=== PATIENT | female | born 1955 | race Caucasian/White ===

== ENCOUNTER 2016-12-04 05:53 | Day surgery (SDC) | payer OTHER ==
[~2016-12-04] VITALS: Ht 162.6 cm; Wt 63.3 kg
[2016-12-04] VITALS (10 sets, daily range): BP systolic 127–144; BP diastolic 70–82; PULSE 72–86; RESP 10–16; O2SAT 92–100
[~2016-12-04 05:53] MED LIST: ACYC200C PO; CALC-72 PO; LORA0.5T PO; LORA10CA PO; MAGN500T PO; NIFE30TA79 PO; PILO5TAB2 PO; TRAM50TA2 PO
[2016-12-04] MEDS ORDERED: fentaNYL-PF 50 mCg/mL 2 mL Inj ONE (05:54)
[2016-12-04] MEDS ORDERED: Propofol 10,000 mCg/mL 20 mL Inj ONE (05:54)
[2016-12-04] MEDS ORDERED: Ondansetron 2 mg/mL 2 mL Inj ONE (05:54)
[2016-12-04] MEDS ORDERED: Dexamethasone 4 mg/mL Inj ONE (05:54)
[2016-12-04] MEDS ORDERED: CeFAZolin 2 Gm/50 mL D5W IV Premix IV ONE (06:00)
[2016-12-04] MEDS: Lactated Ringer's 1,000 ML IV SCH ×2 (06:14→07:11)
[2016-12-04] MEDS ORDERED: Lactated Ringer's 1,000 ML IV SCH (07:25)
[2016-12-04] MEDS ORDERED: Ondansetron 2 mg/mL 2 mL Inj IVPUSH PRN (07:25)
[2016-12-04] MEDS ORDERED: Lactated Ringer's 500 ML IV PRN (07:25)
[2016-12-04] MEDS ORDERED: MetoCLOpramide 5 mg/mL 2 mL Inj IVPUSH PRN (07:25)
[2016-12-04] MEDS ORDERED: Phenylephrine 10,000 mCg/mL Inj IVPUSH PRN (07:25)
[2016-12-04] MEDS ORDERED: EPHEDrine Sulfate 50 mg/mL Inj IVPUSH PRN (07:25)
[2016-12-04] MEDS ORDERED: HYDROmorphone 1 mg/mL Inj IVPUSH PRN (07:25)
[2016-12-04] MEDS ORDERED: Dexamethasone 4 mg/mL Inj IVPUSH PRN (07:25)
--- NOTE | 2016-12-04 07:25 | PCM.HPANE ---
Patient Data Surgeon Admitting Provider: Attending Provider:Pablo Roe DO Primary Care Physician:Chana Snell Other Provider:Guevara Almaraz Anesthesia Reason for Visit Right Finger Retained Hardware Ht/WT & BMI Height (Feet): 5 Height (Inches): 4 Weight (Kilograms): 63.3 Body Mass Index 23.00 Allergies Coded Allergies: Sulfa (Sulfonamide Antibiotics) (Verified Allergy, Unknown, 11/28/16) Past Anesthesia History Anesthesia History: Denies:: Anesthesia Reactions Diabetes History Hx Diabetes?: No Medications Hypertension Medication: Yes Home Meds Incl Beta Patrick: No Reported Medications Tramadol 50 Mg [id number] Mg PO HS PRN For Pain Ref 0 11/28/16 Pilocarpine 5 Mg Tablet5 Mg PO TID 11/28/16 Nifedipine ER 30 Mg Tab.er.2430 Mg PO DAILY Ref 0 11/28/16 Magnesium Oxide 500 Mg Ytcdvy205-9,000 Mg PO HS 11/28/16 Lorazepam 0.5 Mg Tablet0.5 Mg PO HS PRN For Insomnia Ref 0 11/28/16 Loratadine (Claritin)10 Mg Btgdzxa19 Mg PO DAILY Ref 0 11/28/16 Calcium Carbonate/Vitamin D3 (Calcium 500 + Vit D 200 Tablet)1 Each Tablet1 Each PO DAILY 11/28/16 Acyclovir 200 Mg [id number] Mg PO Q8H PRN outbreak Ref 0 for 5 day course 11/28/16 Acyclovir 200 Mg Fvnzxrd121 Mg PO DAILY Ref 0 11/28/16 History History of ENT Problems?: Yes Hx of Heart Problems?: Yes Cardiovascular History: Positive for:: Hypertension Other Cardiac History: Raynauds Hx of Respiratory Problem?: Yes Respiratory History: Positive for:: Asthma Use of Inhalers / NEBS Denies:: Oxygen Administration Use of C-PAP Machine Hx Neurologic Problems?: No Hx of GI Problems?: No Hx of Problems?: No Female Hx: Denies:: Currently (hysterectomy) Skin History: Denies:: History Skin Disorders? Pressure Ulcers Hx Musculoskeletal Problems?: Yes Musculoskeletal History: Positive for:: Fibromyalgia Musculoskeletal Trauma (retained hardware right small finger (3- 1.5mm screws) ) Denies:: Joint Replacement Hx of Psycho/Social Problems?: Yes Psycho Social History: Positive for:: Hx Depression Hx Surgeries?: Yes (ORIF right finger, hysterectomy) Hx Any Other Health Problems?: Yes Other History: Positive for:: Endocrine Disease (SICCA syndrome) Denies:: Cancer Thyroid Disease Hx Diabetes: No Stop/Bang S-Snoring: Do You Snore Loudly: No T-Tired: feel tired, fatigued: Yes O-Obsered: Observed not breath: No P-Blood Pressure: treated: No B- Body Mass Index > 35 kg/m2: Yes A- Age over 50: Yes N- Neck Large Circumference: No G- Gender Male: No INDIO Total Score: 3 Risk Assessment Category Category 1A: Patient has history of documented sleep apnea, and HAS NOT received any narcotic, sedative or anesthesia administration during this stay. Category 1B: Patient has history of documented sleep apnea, and HAS received any narcotic , sedative or anesthesia administration during this stay Category 2: Patient has SUSPECTED Obstructive Sleep Apnea, and HAS received any narcotic , sedative or anesthesia administration during this stay. Category 3: Patient has SUSPECTED Obstructive Sleep Apnea and HAS NOT received narcotic, sedative or anesthesia administration during this stay. Category 4: Outpatient in Procedural Areas with known sleep apnea or who screen positive for High Risk via the STOP/BANG questionnaire. Exam Exam Vital Signs Vital Signs Date Time Temp Pulse Resp B/P Pulse Ox O2 Delivery O2 Flow Rate FiO2 12/04/16 06:17 36.1 86 16 144/79 96 Room Air General Appearance: Alert, Oriented X3, Cooperative, No Acute Distress HEENT/AIRWAY: MP 2 Lungs: Clear to Auscultation Heart: Exam Unremarkable Meds/Labs/Diagnostics Admission Meds Current Medications Lactated Ringer's (Lr) 1,000 ml @ 120 mls/hr Q8H20M IV Last administered on t 07:11; Start 12/04/16 at 05:00; Stop 12/04/16 at 13:19 Plan Impression Patient chart reviewed, patient interviewed and anesthestic plan with risks, benefits, and alternatives discussed, and informed consent obtained. NPO Status: 12/04/16 black coffee at 0300 ASA Physical Status: ASA2 Mod Systemic Disease Anesthetic Plan: GA Bene/Risks/Altern/Consents: Yes HP Complete Prior to Induction: Yes Albert Hurt MD Dec 04, 2016 07:25
[2016-12-04] MEDS ORDERED: Lidocaine 1%-Epi 1:100,000 20 mL Inj INJ ONE (08:08)
[2016-12-04] MEDS: fentaNYL-PF 50 mCg/mL 2 mL Inj IVPUSH PRN ×2 (08:22→08:33)
[2016-12-04] MEDS ORDERED: HYDROcodone-APAP 5-325 mg Tablet PO PRN (08:30)
[2016-12-04] MEDS ORDERED: HYDROmorphone 0.5 mg/0.5 mL iSecure Syringe ONE (08:41)
--- NOTE | 2016-12-04 08:49 | PCM.ANEP2 ---
Post Anesthesia Evaluation ASA/CMS Post Anesthesia VS in Patient's Normal Range?: Yes Resp Stable; Airway Patent?: Yes CV Function & Hydration Stable: Yes Mental Status Recovered?: Yes Pain control Satisfactory?: Yes N/V Control Satisfactory?: Yes Albert Hurt MD Dec 04, 2016 08:49
--- NOTE | 2016-12-04 08:49 | PCM.ANEP1 ---
Post Anesthesia Phase 1 PACU Phase 1 Assessment Vital Signs Vital Signs Date Time Temp Pulse Resp B/P Pulse Ox O2 Delivery O2 Flow Rate FiO2 12/04/16 08:45 80 12 137/75 93 Room Air 12/04/16 08:30 36.9 80 11 128/72 94 Room Air 12/04/16 08:25 81 16 127/70 97 Room Air 12/04/16 08:20 82 11 133/79 97 Room Air 12/04/16 08:16 36.2 128/71 12/04/16 06:17 36.1 86 16 144/79 96 Room Air Anesthetic Administered: GA Level of Alertness: Awake, talking TRIVEDI's with Equal Strength: Yes Pain: Yes Pain Scale Score: 6 Nausea or Vomiting: No Oxygen Delivery: Room Air Lungs: Clear to Auscultation Dermatome Level: Full Sensation Albert Hurt MD Dec 04, 2016 08:49
[2016-12-04] MEDS ORDERED: HYDROcodone-APAP 5-325 mg Tablet PO ONE (09:03)
--- NOTE | 2016-12-04 23:02 | OP ---
[address] [address] OPERATIVE REPORT PATIENT: TAMMIE LANDON : 1955 MR#: [id number] ADMIT: 12/04/2016 JOB ID: [id number] DATE OF SURGERY: 12/04/2016 PREOPERATIVE DIAGNOSIS(ES): Right small finger painful orthopedic hardware within the proximal phalanx. POSTOPERATIVE DIAGNOSIS(ES): Right small finger painful orthopedic hardware within the proximal phalanx. PROCEDURE: Removal of right small finger deep hardware from the proximal phalanx consisting of three screws. SURGEON: Pablo Roe D.O. ANESTHESIA: General. HISTORY: The patient is a pleasant 61-year-old female with a longstanding history of right small finger pain. She had an open reduction, internal fixation right small finger proximal phalanx shaft fracture done many years ago that healed uneventfully. Over the last few years, she started to have more pain and discomfort overlying the heads of the screws. The patient presented to me to discuss having the hardware removed. I explained the risks, benefits, alternatives and indications. She understood the risks include, but are not limited to, neurovascular injury, tendon injury, infection, stiffness, persistent pain; all of which may require further intervention. The patient had all questions answered and consent was signed and placed on the chart. PROCEDURE IN DETAIL: Patient was brought to the operative suite and placed supine on the operating room table. Surgical time-out was performed. Everyone in the room was in agreement. After appropriate anesthesia was obtained, a right upper arm tourniquet was applied and the right upper extremity was prepped and draped in sterile fashion. Right upper extremity was then exsanguinated and tourniquet inflated to 250 mmHg. Patient's right small finger proximal phalanx was approached through the previous incision to the dorsal ulnar aspect of the small finger proximal phalanx. This was extended in a curvilinear fashion distally. Dissection was carried down to the extensor tendon, and the extensor tendon as well as the lateral band was elevated in a radial direction exposing the three screws. The screws were then freed of ant surrounding tissue and removed manually without any complication. Copious irrigation was then performed, followed by direct closure of the skin with 5-0 nylon in simple interrupted fashion. Patient was then placed in a bulky soft dressing. ESTIMATED BLOOD LOSS: Less than 1 cc. COMPLICATIONS: None. DISPOSITION: The patient tolerated the procedure well. Anesthesia was reversed and the patient was transferred back to recovery. SPECIMENS: Three 1.5 mm Synthes cortical screws that were disposed of. POSTOPERATIVE PLAN: The patient will follow up in the office in two weeks. I will remove the patient's sutures at that time and have her start working on range of motion and scar mobilization. DANA
== END 2016-12-04 23:59 | disposition home or self-care (01) ==
LOC: SAS 05:53
PROVIDERS: ATTEND Orthopaedic Surgery
DX: T84.84XS Pain due to internal orthopedic prosthetic devices, implants and grafts, sequela (principal); I10 Essential (primary) hypertension; M85.80 Other specified disorders of bone density and structure, unspecified site; M35.00 Sjogren syndrome, unspecified; F17.210 Nicotine dependence, cigarettes, uncomplicated
CPT/HCPCS: 20680; J0690; J1100; J1170; J2405; J7120

== ENCOUNTER 2016-12-11 19:18 | Emergency (ER) | payer OTHER ==
[~2016-12-11] VITALS: Ht 162.6 cm; Wt 63.0 kg
[2016-12-11 20:04] VITALS: BP 153/88; PULSE 89; RESP 22; O2SAT 98
[2016-12-11 20:47] LABS: BASOPHILS % (AUTO) 0.3 % (0-3); EOSINOPHILS % (AUTO) 1.4 % (0-5); MONOCYTES % (AUTO) 9.4 % (4-12); Mean Corpuscular Hemoglobin 34.7 pg (27.0-35.0); Mean Corpuscular Volume 98.8 fL (81-100); NEUTROPHILS % (AUTO) 77.4 % (40-74); Platelet Count 262 bil/L (150-400)
--- NOTE | 2016-12-11 21:23 | ED.REPORT ---
HPI-Allergic Reaction Date of Service Dec 11, 2016 ED Provider: Rome Teresa MD Patient is a 61 year old female with a history fo Sjgren's Syndrome, fibromyalgia, hypertension, and recent right 5th finger surgery for removal of hardware on 12/04/2016 who presents to the ED with abdominal pain and increased gassiness that began yesterday morning. She reports diffuse cramping pain and states that it hurts to sit or move. Patient describes has pain as "going into colitis" and that she has an episode like this once per year. Her pain is worse when eating or drinking. Patient denies nausea and vomiting, but admits to looser than normal stools for the past 2 days. Patient is on Cephalexin post-op and is concerned that this is what is causing her symptoms. She has been taking this medication for a week stopped taking this antibiotic yesterday. Patient started taking probiotics this morning for her symptoms. She is allergic to sulfa antibiotics. Patient's surgery was preformed by Dr. Roe. She has pain medication at home, but she has not been taking it. She denies fever, back pain , bloody or tarry stool, or hematochezia. Nursing Notes Stated Complaint: ANTIBIOTIC ALLERGIC REACTION Chief Complaint: Female Abdominal Pain Nursing Notes Reviewed: Yes Allergies: Coded Allergies: Sulfa (Sulfonamide Antibiotics) (Verified Allergy, Unknown, 11/28/16) Scheduled Acyclovir (Acyclovir) 200 Mg Capsule 200 MG PO DAILY Calcium Carbonate/Vitamin D3 (Calcium 500 + Vit D 200 Tablet) 1 Each Tablet 1 EACH PO DAILY Loratadine (Claritin) 10 Mg Capsule 10 MG PO DAILY Magnesium Oxide (Magnesium Oxide) 500 Mg Tablet 500-1,000 MG PO HS Nifedipine ER (Nifedipine ER) 30 Mg Tab.er.24 30 MG PO DAILY Pilocarpine (Pilocarpine) 5 Mg Tablet 5 MG PO TID Scheduled PRN Acyclovir (Acyclovir) 200 Mg Capsule 200 MG PO Q8H PRN PRN outbreak for 5 day course Lorazepam (Lorazepam) 0.5 Mg Tablet 0.5 MG PO HS PRN PRN For Insomnia Tramadol (Tramadol) 50 Mg Tablet 50 MG PO HS PRN PRN For Pain General Time Seen by MD: 21:21 Chief Complaint Other (abdominal pain) Hx Obtained From: Patient Arrived By: Walk-in Onset Occurred: Yesterday Symptom Duration: Since onset Location: : Abdomen Quality: Cramping, Painful Severity: Current: Moderate Severity: Maximum: Moderate Recent Healthcare: No recent doctor visit, No recent hospitalization Similar Sx Previous: Yes Past Medical History Past Medical History Sjgren's syndrome hypertension asthma fibromylagia depression Past Surgical History ORIF right small finger, with subsequent removal of painful hardware on 12/04/2016 Reports: Hysterectomy Smoking History Current Every Day Smoker Social History Alcohol Use: "Social" Other Social History: Good social support, Local resident Ambulatory Status Independent Review of Systems Review of Systems Note: + increased gas Constitutional: Denies: Chills, Fever GI: Reports: Abdominal pain, Diarrhea (loose stools), Denies: Bloody/tarry stool, Hematochezia, Nausea, Vomiting Complete sys rev & neg: except as marked. Female: Denies: Flank pain Physical Exam Initial Vital Signs Vital Signs (First) Date Time Temp Pulse Resp B/P Pulse Ox O2 Delivery O2 Flow Rate FiO2 12/11/16 20:04 37.0 89 22 153/88 98 Room Air Initial VS: Reviewed, Vital signs normal Head / Eyes: Atraumatic, Normocephalic, PERRL ENT: Conjunctiva normal, No scleral icterus Neck: Supple, Full range of motion Extremities: Vascular intact, Neuro intact, No swelling Neurologic: Alert, Oriented, Nonfocal Psychiatric: Mood/affect normal, Behavior normal, Normal thought content General/Constitutional: Awake, Alert, No acute distress Respiratory / Chest: Breath sounds NL, Breath sounds = bilat, No respiratory distress, No rales, No rhonchi, No wheezing Cardiovascular: Heart rate NL, Regular rhythm, Heart sounds NL Skin: Color NL, No rash, Warm, Dry Abdomen: Soft, No guarding, No rebound Tenderness/Guarding/Rebound: Positive: Tender diffuse (without localization) Interpretation & Diagnostics Lab Results Interpretation Result Diagram: 12/11/16203412/11/162034 Test 12/11/16 20:35 12/11/16 21:41 12/11/16 21:44 White Blood Count 14.8th/mm3 (3.8-10.1) Red Blood Count 4.06mil/mm3 (3.90-5.20) Hemoglobin 14.1g/dL (12.0-15.6) Hematocrit 40.1% (35.0-46.0) Mean Corpuscular Volume 98.8fL (81-100) Mean Corpuscular Hemoglobin 34.7pg (27.0-35.0) Mean Corpuscular Hemoglobin Concent 35.2% (32.0-37.0) Red Cell Distribution Width 12.7% (12.3-15.4) Platelet Count 262bil/L (150-400) Neutrophils (%) (Auto) 77.4% (40-74) Lymphocytes (%) (Auto) 11.3% (14-46) Monocytes (%) (Auto) 9.4% (4-12) Eosinophils (%) (Auto) 1.4% (0-5) Basophils (%) (Auto) 0.3% (0-3) Sodium Level 141mEq/L (134-144) Potassium Level 4.3mEq/L (3.5-5.2) Chloride Level 103mEq/L (97-108) Carbon Dioxide Level 23mmol/L (18-29) Blood Urea Nitrogen 8mg/dL (8-27) Creatinine 0.64mg/dL (0.57-1.00) Estimat Glomerular Filtration Rate 136mL/min (>59) Glucose Level 109mg/dL (60-99) Calcium Level 9.3mg/dL (8.5-10.1) Magnesium Level 2.0mg/dL (1.6-2.6) Total Bilirubin 0.5mg/dL (0.0-1.2) Aspartate Amino Transf (AST/SGOT) 15U/L (0-50) Alanine Aminotransferase (ALT/SGPT) 12U/L (0-32) Alkaline Phosphatase 58U/L (25-165) Total Protein 7.1g/dL (6.4-8.4) Albumin 4.5g/dL (3.4-5.0) Lipase 15U/L (13-60) Hold Craig Top Tube Received (Received) Urine Color Yellow (YELLOW) Urine Appearance Clear (CLEAR,HAZY) Urine pH 7.0 (5.0-8.0) Urine Specific [place] <1.005 (1.003-1.035) Urine Protein Negativemg/dL (NEG,TRACE) Urine Glucose (UA) Negativemg/dL (NEGATIVE) Urine Ketones Negativemg/dL (NEGATIVE) Urine Occult Blood Negative (NEGATIVE) Urine Nitrite Negative (NEGATIVE) Urine Bilirubin Negative (NEGATIVE) Urine Urobilinogen Normalmg/dL (NORMAL) Urine Leukocyte Esterase Small (NEGATIVE) Urine RBC 0-2/hpf (0-2) Urine WBC 6-10/hpf (0-5) Urine Epithelial Cells Moderate/hpf (NONE-MOD) Urine Crystals None seen (NONE SEEN) Urine Bacteria None/hpf (NONE-FEW) Urine Hyaline Casts None/lpf (NONE) Urine Granular Casts None seen (NONE SEEN) Urine Waxy Casts None seen (NONE SEEN) Urine Red Blood Cell Casts None seen (NONE SEEN) Urine White Blood Cell Casts None seen (NONE SEEN) Urine Mucus None seen (None Seen) Urine Trichomonas None seen (NONE SEEN) Urine Yeast None (NONE SEEN) Urinalysis Comment None Urine Culture Reflexed Indicated Hold Urine Received (Received) Lab Results Interpretation: Elevated white blood count Re-Eval/Medical Decision Med Decision/Clinical Course 61-year-old female who had hardware removed from her finger. She was placed on preventative cephalexin. She developed an exacerbation of her colitis, likely related to the cephalexin. She does have an elevated white blood count but has no evidence of infection at the site. She already has stopped the antibiotic and will not restart it. Probiotics, yogurt, etc. Follow-up as needed if the colitis symptoms do not resolve. Source of Hx: Old records Re-Evaluation/Progress #1: Time of Eval: 21:44 Patient Status: Condition improved Re-Evaluation/Progress Note: Discussed the patient's labs so far. Her urine dip was suspicious for a UTI. Will await UA prior to discharge. Re-Evaluation/Progress #2: Time of Eval: 22:20 Patient Status: Condition improved Re-Evaluation/Progress Note: Discussed US results, with the plan to wait for culture. Patient understands and agrees with the plan to be discharged home. Discharge instructions and follow-up discussed. All questions were addressed. Return to the ED warnings given. Counseled Regarding: Diagnosis, Lab results, Need for follow-up, When/why to return to ED Discharge & Departure Primary Impression: Antibiotic-associated colitis Disposition: Home Discharge Condition All VS Reviewed: Yes Condition: Stable Patient Instructions: Acute Abdominal Pain (ED) Additional Instructions: Do not restart the cephalexin. Probiotics, yogurt, lactobacillus milk or similar efforts to reintroduce normal bacteria. Follow-up with your primary doctor if you have further problems especially developed bloody or mucousy diarrhea. Low-dose, short-term pain medicine may help with her current symptoms. Referrals: Chana Snell (PCP) [place] Attestation Portions of this note were transcribed by Chelly Rios. I, Dr. Teresa personally performed the history, physical exam and medical decision-making; I reviewed and confirmed the accuracy of the information in the transcribed note. Signed by: Woody Carrion, 12/11/2016 2226 copies to: Chana Snell Howard L MD Dec 11, 2016 21:23 Chelly Rios Dec 11, 2016 21:40
[2016-12-11 22:04] LABS: APPEARANCE,URINE CLEAR (CLEAR,HAZY); COLOR,URINE YELLOW (YELLOW)
[2016-12-11 22:05] LABS: OCCULT BLOOD,URINE NEGATIVE (NEGATIVE); UROBILINOGEN,URINE NORMAL (NORMAL)
[2016-12-11 22:31] VITALS: BP 138/67; PULSE 69; O2SAT 97
== END 2016-12-11 22:32 | disposition home or self-care (01) ==
LOC: SED 19:18
DX: K52.1 Toxic gastroenteritis and colitis (principal); T36.1X5A Adverse effect of cephalosporins and other beta-lactam antibiotics, initial encounter; X58.XXXA Exposure to other specified factors, initial encounter; Y92.9 Unspecified place or not applicable; Y99.8 Other external cause status; Y93.89 Activity, other specified; D72.829 Elevated white blood cell count, unspecified; M35.00 Sjogren syndrome, unspecified; M79.7 Fibromyalgia; I10 Essential (primary) hypertension; J45.909 Unspecified asthma, uncomplicated; F17.200 Nicotine dependence, unspecified, uncomplicated; Z98.890 Other specified postprocedural states; Z88.2 Allergy status to sulfonamides